=== PATIENT | male | born 1945 | race Caucasian/White ===

== ENCOUNTER → 2016-08-27 | Outpatient (CLI) | payer MEDICARE ==
[~2016-08-27] MED LIST: AMLO10TA2 PO; ASPI-658; ATOR40TA78 PO; CHOL20002 PO; EZET10TA3; FISH OIL PO; FOLI-17; GLIP2.5T3 PO; LISI-468; METF-86 PO; METO50TA82; NAPR220C2 PO; NITR0.4T SL; OMEP20TA62 PO; PRAV40TA2
[2016-08-27 10:47] LABS: HEMOGLOBIN 14.6 g/dL (13.7-18.0)
[2016-08-27 10:56] LABS: PATH.CAST-FLAG NOT PRESENT; SPERM-FLAG NOT PRESENT; SRC-FLAG NOT PRESENT; XTAL-FLAG NOT PRESENT; YLC-FLAG NOT PRESENT
[2016-08-27 11:09] LABS: ASPARTATE AMINO TRANSFERASE 11 U/L (15-37); BLOOD UREA NITROGEN 14 mg/dL (7-18)
== END | disposition home or self-care (01) ==
LOC: STAR 09:23
PROVIDERS: ATTEND Orthopaedic Surgery
DX: Z01.810 Encounter for preprocedural cardiovascular examination (principal); M16.12 Unilateral primary osteoarthritis, left hip
CPT/HCPCS: 36415; 80053; 81001; 85025; 87081; 93005

== ENCOUNTER → 2017-01-28 | Outpatient (CLI) | payer MEDICARE, OTHER ==
[~2017-01-28] MED LIST changes: -ASPI-658; +ASPI-658 PO; +EZET10TA18 PO; -EZET10TA3; -FOLI-17; +FOLI-17 PO; -LISI-468; +LISI-468 PO; +METF-162 PO; -METF-86 PO; -METO50TA82; +METO50TA82 PO; +OXYC-302 PO
== END | disposition home or self-care (01) ==
LOC: CFH 09:36
PROVIDERS: ATTEND Internal Medicine Cardiovascular Disease
DX: I25.10 Atherosclerotic heart disease of native coronary artery without angina pectoris (principal)
CPT/HCPCS: 93306

== ENCOUNTER → 2017-07-08 | Outpatient (CLI) | payer MEDICARE, OTHER | END | disposition home or self-care (01) | LOC: CFH 09:32 | PROVIDERS: ATTEND Internal Medicine Cardiovascular Disease | DX: I35.8 Other nonrheumatic aortic valve disorders (principal); I10 Essential (primary) hypertension; E11.9 Type 2 diabetes mellitus without complications; I25.10 Atherosclerotic heart disease of native coronary artery without angina pectoris; Z95.5 Presence of coronary angioplasty implant and graft | CPT/HCPCS: 93306 ==

== ENCOUNTER 2017-12-26 21:50 | Emergency (ER) | payer MEDICARE, OTHER ==
[~2017-12-26] VITALS: Ht 162.6 cm; Wt 66.7 kg
[2017-12-26] MEDS ORDERED: ONDANSETRON ODT 4 MG PO ONE (22:30)
[2017-12-26 22:42] LABS: BASOPHILS # (AUTO) 0.04 x10^3/uL (0-0.1); BASOPHILS % (AUTO) 0 % (0-1); EOSINOPHILS # (AUTO) 0.33 x10^3/uL (0-0.4); EOSINOPHILS % (AUTO) 2 % (1-7); LYMPHOCYTES # (AUTO) 1.21 x10^3/uL (1-3.4); LYMPHOCYTES % (AUTO) 9 % (22-44); MD NO; MEAN CORPUSCULAR HEMOGLOBIN 31.6 pg (27.5-34.5); MEAN CORPUSCULAR HGB CONC 34.7 g/dL (33.2-36.2); MEAN CORPUSCULAR VOLUME 91.2 fL (81-97); MEAN PLATELET VOLUME 7.4 fL (7.4-10.4); MONOCYTES # (AUTO) 0.55 x10^3/uL (0.2-0.8); MONOCYTES % (AUTO) 4 % (2-9); NEUTROPHILS # (AUTO) 11.51 x10^3/uL (1.8-6.8); NEUTROPHILS % (AUTO) 84 % (42-75); PLATELET COUNT 208 x10^3/uL (130-400); RED BLOOD COUNT 4.47 x10^6/uL (4.38-5.82); RED CELL DISTRIBUTION WIDTH 13.1 % (9.4-14.8)
[2017-12-26 22:52] LABS: ALBUMIN 3.8 g/dL (3.4-5.0); ANION GAP 7 mmol/L (5-15); CALCIUM 9.8 mg/dL (8.5-10.1); CHLORIDE 109 mmol/L (98-107); CREATININE 1.33 mg/dL (0.7-1.3)
[2017-12-26 22:56] LABS: ALKALINE PHOSPHATASE 66 U/L (45-117); BILIRUBIN,TOTAL 1.2 mg/dL (0.2-1.0); TOTAL PROTEIN 6.9 g/dL (6.4-8.2); TROPONIN I < 0.015 ng/mL (0.000-0.045)
[2017-12-26 22:57] LABS: ALANINE AMINOTRANSFERASE 31 U/L (12-78)
[2017-12-26] MEDS ORDERED: ONDANSETRON ODT 4 MG ONE (23:50)
[2017-12-26] MEDS ORDERED: MECLIZINE CHEWABLE 25 MG TAB ONE (23:50)
[2017-12-27] MEDS ORDERED: MECLIZINE CHEWABLE 25 MG TAB PO ONE
[2017-12-27 00:11] VITALS: BP 137/70
== END 2017-12-27 00:13 | disposition home or self-care (01) ==
LOC: ED 23:59
DX: R42 Dizziness and giddiness (principal); R19.7 Diarrhea, unspecified; I10 Essential (primary) hypertension; E78.00 Pure hypercholesterolemia, unspecified; E11.9 Type 2 diabetes mellitus without complications
CPT/HCPCS: 36415; 80053; 83690; 84484; 85025; 93005; 99285; Q0162

== ENCOUNTER → 2019-06-26 | Outpatient (CLI) | payer MEDICARE, OTHER ==
[~2019-06-26] MED LIST changes: -AMLO10TA2 PO; +AMLO10TA8 PO; -CHOL20002 PO; +CHOL200052 PO; -EZET10TA18 PO; +EZET10TA70 PO; -NITR0.4T SL; +NITR0.4T41 SL
== END | disposition home or self-care (01) ==
LOC: CVU 14:30
PROVIDERS: ATTEND Internal Medicine Cardiovascular Disease
DX: I65.23 Occlusion and stenosis of bilateral carotid arteries (principal); I10 Essential (primary) hypertension; I25.10 Atherosclerotic heart disease of native coronary artery without angina pectoris; E11.9 Type 2 diabetes mellitus without complications
CPT/HCPCS: 93880

== ENCOUNTER → 2020-04-26 | Outpatient (CLI) | payer MEDICARE, OTHER ==
[~2020-04-26] MED LIST changes: +AMLO-211 PO; -AMLO10TA8 PO
== END | disposition home or self-care (01) ==
LOC: CVU 09:32
PROVIDERS: ATTEND Internal Medicine Cardiovascular Disease
DX: I65.23 Occlusion and stenosis of bilateral carotid arteries (principal)
CPT/HCPCS: 93880